=== PATIENT | female | born 1965 | race Caucasian/White ===

== ENCOUNTER → 2017-02-27 | Outpatient (CLI) | payer OTHER ==
--- NOTE | 2017-02-27 11:08 | REPMRS ---
Patient History The patient states she has not had a clinical breast exam in over a year. No known family history of cancer. Patient has lost 25 pounds since last mammogram. Digital Mammo Screening Bilat: February 27, 2017 - Exam #: [id number] Bilateral CC and MLO view(s) were taken. Technologist: Patsy Brady Technologist Prior study comparison: June 28, 2013, bilateral digital mammo screening bilat performed at [facility]. July 11, 2010, bilateral digital mammo screening bilat performed at [facility]. FINDINGS: There are scattered fibroglandular densities. There has been no change in the appearance of the mammogram from the prior studies. There is a mild amount of scattered fibroglandular density which is fairly symmetric. There is no interval development of dominant mass, architectural distortion, or clustered microcalcification suggestive of malignancy. ASSESSMENT: BI-RADS/ACR category 1 mammogram. Negative. Recommendation Routine screening mammogram in 1 year (for women over age 40). This mammogram was interpreted with the aid of an FDA-approved computer-aided dectection system. Electronically Signed By: John Doss MD 02/27/17 [id number]
== END ==
LOC: M RAD 10:41
PROVIDERS: ATTEND Family Medicine
DX: Z12.31 Encounter for screening mammogram for malignant neoplasm of breast (principal)

== ENCOUNTER → 2017-05-02 | Outpatient (CLI) | payer OTHER ==
--- NOTE | 2017-05-02 14:41 | REP ---
Clinical: Shortness of breath . Comparison: None . Technique: PA and lateral. Findings: The mediastinum and cardiac silhouette are normal. The lung neal are clear and without acute consolidation, effusion, or pneumothorax. The skeletal structures are intact and normal. Impression: 1. No acute cardiopulmonary process. Signed by Javy Cash MD 05/02/2017 09:55 A
== END ==
LOC: M RAD 09:28
PROVIDERS: ATTEND Physician Assistant Medical
DX: R06.02 Shortness of breath (principal)

== ENCOUNTER → 2017-10-23 | Day surgery (SDC) | payer OTHER ==
[~2017-10-23] MED LIST: PROPOFOL 200 MG/20 ML VIAL As Ordered
[2017-10-23] MEDS: NS 1,000 ML IV (10:48)
== END | disposition home or self-care (01) ==
LOC: M OPP 10:30
DX: Z12.11 Encounter for screening for malignant neoplasm of colon (principal); N95.9 Unspecified menopausal and perimenopausal disorder; Z91.89 Other specified personal risk factors, not elsewhere classified; Z87.19 Personal history of other diseases of the digestive system
CPT/HCPCS: 45378

== ENCOUNTER → 2019-02-11 | Outpatient (CLI) | payer OTHER ==
[~2019-02-11] MED LIST changes: +CALC600T60 PO; +MULT1TAB10 PO; +OMEP-221 PO; +PROBCAP14 PO; +PROBCAP4 PO; -PROPOFOL 200 MG/20 ML VIAL As Ordered; +[UNRECOGNIZED DRUG - OTHER] PO
--- NOTE | 2019-02-11 13:15 | ECGEPIP ---
[facility] Test Date: 2019-02-11 Pat Name: EDDIE CHANG Department: Room: - Gender: Female Multi Media Specialist: MARY : [id number] Requested By: Familia Dominguez Order Number: [id number] Reading MD: Afsaneh Duque Measurements Intervals [place] Rate: 55 P: -2 WA: 145 QRS: 35 QRSD: 75 T: 50 QT: 400 QTc: 383 Interpretive Statements SINUS BRADYCARDIA LOW VOLT LIMB LEADS UNUSUAL P AXIS MILD EARLY REPOLAR CHANGES NSST ABN NO PRIOR Electronically Signed on 02-11-2019 13:15:37 EDT by Afsaneh Duque
== END ==
LOC: M EKG 12:46
PROVIDERS: ATTEND Orthopaedic Surgery
DX: Z01.818 Encounter for other preprocedural examination (principal); R00.1 Bradycardia, unspecified

== ENCOUNTER → 2019-02-11 | Outpatient (CLI) | payer OTHER ==
--- NOTE | 2019-02-11 11:55 | REP ---
Right rib series five views: There is no right rib fracture or other rib abnormality. PA chest: There is no pneumothorax, hemothorax or pulmonary contusion. Lung neal are clear. Cardiac size is normal. The michelle, mediastinum, skeletal structures are unremarkable. There is no change from the comparison study dated 05/02/2017. Impression: Negative PA chest Electronically Signed by Mynor Solis MD 02/11/2019 11:47 A
== END ==
LOC: M LRY 10:08
PROVIDERS: ATTEND Family Medicine
DX: R07.81 Pleurodynia (principal); Z01.818 Encounter for other preprocedural examination; R00.1 Bradycardia, unspecified
CPT/HCPCS: 71101; 93005; G0463

== ENCOUNTER 2019-02-24 10:50 | Day surgery (SDC) | payer OTHER ==
[~2019-02-24] VITALS: Ht 167.6 cm; Wt 70.8 kg
[~2019-02-24 10:50] MED LIST changes: +LIDOCAINE 1% MDV 20ML VIAL SQ PRN; +LR 1,000 ML IV ONE
[2019-02-24] MEDS ORDERED: ROPIvacaine 0.5% 30 ML INJECTION (J2795 PER 1MG) ONE (10:51)
[2019-02-24] MEDS ORDERED: dexameTHASONE 10 MG/1 ML VIAL PRES.FREE (J1100) ONE (10:51)
[2019-02-24 11:43] LABS: URINE PREG TEST NEGATIVE (NEGATIVE)
[2019-02-24] MEDS ORDERED: SCOPOLAMINE 1MG TRANSDERMAL PATCH As Ordered ONE (13:05)
[2019-02-24] MEDS ORDERED: fentaNYL 100 MCG/2 ML INJECTION (J3010) As Ordered ONE ×2 (13:08→14:55)
[2019-02-24] MEDS ORDERED: MIDAZOLAM INJ 2 MG/2 ML VIAL (J2250) As Ordered ONE ×2 (13:08→14:55)
[2019-02-24] MEDS ORDERED: SCOPOLAMINE 1MG TRANSDERMAL PATCH TOP ONE (13:15)
[2019-02-24] MEDS ORDERED: EPINEPHrine 1MG/ML INJ 30ML MD-VIAL As Ordered ONE (13:35)
[2019-02-24] MEDS: MIDAZOLAM INJ 2 MG/2 ML VIAL (J2250) IV SCH ×2 (13:36→13:38)
[2019-02-24] MEDS ORDERED: fentaNYL 100 MCG/2 ML INJECTION (J3010) IV ONE (14:15)
[2019-02-24] MEDS ORDERED: dexameTHASONE 4 MG/ML 1ML VIAL (J1100) As Ordered ONE (14:38)
[2019-02-24] MEDS ORDERED: ROCURONIUM BROMIDE 50 MG/5 ML VIAL As Ordered ONE (14:55)
[2019-02-24] MEDS ORDERED: SUCCINYLCHOLINE 100 MG/5 ML SYRINGE (J0330) As Ordered ONE (14:55)
[2019-02-24] MEDS ORDERED: PROPOFOL 200 MG/20 ML VIAL As Ordered ONE (14:55)
[2019-02-24] MEDS ORDERED: LIDOCAINE 2% INJ 100 MG/5 ML SDV (FOR ANES.) As Ordered ONE (14:55)
[2019-02-24] MEDS ORDERED: PHENYLephrine HCL 500 MCG/5 ML (100MCG/ML) SYRINGE (J2370) As Ordered ONE (15:19)
[2019-02-24] MEDS ORDERED: ONDANSETRON 4MG/2ML VIAL (J2405) As Ordered ONE (15:34)
[2019-02-24] MEDS ORDERED: GLYCOPYRROLATE INJ 0.2 MG/ML 2 ML VIAL As Ordered ONE (15:35)
[2019-02-24] MEDS ORDERED: NEOSTIGMINE 10 MG/10 ML VIAL (J2710) As Ordered ONE (15:35)
[2019-02-24] MEDS ORDERED: LR 1,000 ML IV SCH ×2 (16:00)
[2019-02-24] MEDS ORDERED: PERCOCET 5MG/325MG TAB PO PRN ×2 (16:00)
[2019-02-24] MEDS ORDERED: fentaNYL 100 MCG/2 ML INJECTION (J3010) IV PRN (16:00)
[2019-02-24] MEDS ORDERED: ONDANSETRON 4MG/2ML VIAL (J2405) IV PRN (16:00)
[2019-02-24] MEDS ORDERED: MORPHINE 2 MG/ML 1ML SYRINGE (J2270) IV PRN (16:00)
[2019-02-24] MEDS ORDERED: METOCLOPRAMIDE INJ 10MG/2ML VIAL (J2765) As Ordered ONE (16:30)
[2019-02-24] MEDS ORDERED: METOCLOPRAMIDE INJ 10MG/2ML VIAL (J2765) IV PRN (16:45)
[2019-02-24 18:15] VITALS: BP 113/71
--- NOTE | 2019-02-25 14:05 | RO ---
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 POSTPROCEDURE DIAGNOSES: 1. 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 2. Articular side rotator cuff partial thickness tearing. PROCEDURE: 1. Left shoulder arthroscopic Bankart reconstruction. 2. Left shoulder arthroscopic debridement of articular-sided rotator cuff partial tearing. SURGEON: Dr. Familia Anguiano. GARBAGE COLLECTOR: ANESTHESIA: General endotracheal tube anesthesia with left nerve scalene nerve block. COMPLICATIONS: None. FINDINGS: She had a significant anterior labral periosteal sleeve avulsion ALPSA lesion of the anterior labrum of the shoulder with a large Hill-Sachs deformity consistent with an unstable left shoulder. The undersurface of the rotator cuff had significant fraying of the supraspinatus tendon insertion. Exam under anesthesia showed a worsened increased translation but it was not dislocated ball. But she had she had fairly lax anteroinferior left shoulder compared to the right. DESCRIPTION OF PROCEDURE: After the anesthetic had been successfully established, she was placed in a semi-beach chair position. The left shoulder area was carefully prepped and draped in the usual sterile fashion after appropriate time out. Routine diagnostic arthroscopy performed through a posterior portal. An anterior-superior working cannula and portal was established and we explored the joint with the findings as noted. After careful exploration of the joint, and understanding the pathology, I debrided the undersurface of the rotator cuff tendon tear with a 4.0 curved shaver. I then established an anterior superior cannula using a Switching Stick then the dilators and using a 7 mm x 7 cm cannula. Then I established the anteroinferior cannula by introducing a spinal needle to localize our direction of insertion just above the subscapularis tendon and then I used the Switching Stick followed by the dilators. I inserted an 8.25 x 9 cannula. I then introduced the silver subperiosteal elevator to debride and free-up the ALPSA lesion along the anterior rim of the glenoid all the way inferiorly. Once this had been nicely free, I used the shaver to debride this area to help freshen for healing as well trimmed up some of the frayed anteroinferior labral tearing with the shaver. Once that had been satisfied with this release of the labrum and immobilized sufficiently, I used a 22-degree curve to the left suture lasso from the inferior cannula and grabbed a good bite of the anteroinferior capsule and labrum and then applied that lasso out to the anterosuperior cannula with a grab claw past the loop of a fiber cinch through that and pulled it out through the anteroinferior cannula and grabbed the remaining limb out to the anteroinferior cannula passed it through the loop as a cinch stitch. We loaded this onto a 2.9 PushLock. Introduced the drill through the anteroinferior cannula. Drilled at the inferior aspect of the anterior glenoid, and then passed the 2.9 PushLock making sure kourtney was good tension. This provided a nice excellent bumper effect and brought the anteroinferior labrum up superiorly nicely tightening up the inferior capsule. The remaining tail of the suture was cut with a suture cutter. I then, in a similar fashion passed another loop of sutures through the labrum just above the previously placed anteroinferior anchor. Again, the suture lasso was passed out through the anterosuperior cannula followed by a loop of fiber chinch, passed back through the anteroinferior cannula. Then the tail was also passed up through the anteroinferior cannula, loop through itself as a cinch stitch, loaded on the 2.9 PushLock. The drill was introduced. The drill hole was made and then the 2.0 PushLock dumped appropriately into the hole with good tension on the suture. Then the tail was cut with a suture cutter. This provided nice stability of the shoulder. Her drive through sign that she had previously was now absent indicative that we tightened the shoulder nicely in the anteroinferior direction. No arthroscopic review of pathology was identified. We copiously irrigated out the shoulder joint and removed the arthroscopy instruments. Closed the arthroscopy portals with interrupted nylon sutures, covered by Adaptic, dry sterile bulky dressing. She was placed into a sling and then awakened from general endotracheal anesthesia after having tolerated the procedure well, transferred to the recovery room in stable condition. There were no intraoperative complications.
== END 2019-02-24 18:45 | disposition home or self-care (01) ==
LOC: M SDC 10:50
PROVIDERS: ATTEND Orthopaedic Surgery
DX: S46.012A Strain of muscle(s) and tendon(s) of the rotator cuff of left shoulder, initial encounter (principal); X58.XXXA Exposure to other specified factors, initial encounter; Y92.89 Other specified places as the place of occurrence of the external cause; Y99.9 Unspecified external cause status; Y93.9 Activity, unspecified; K21.9 Gastro-esophageal reflux disease without esophagitis; Z79.899 Other long term (current) drug therapy
CPT/HCPCS: 29806; 64415; 84703; C1713; J0330; J0690; J1100; J2250; J2370; J2405; J2710; J2765; J2795; J3010

== ENCOUNTER 2020-11-26 07:33 | Emergency (ER) | payer OTHER ==
[~2020-11-26] VITALS: Ht 170.2 cm; Wt 76.5 kg
[~2020-11-26 07:33] MED LIST changes: -LIDOCAINE 1% MDV 20ML VIAL SQ PRN; -LR 1,000 ML IV ONE
[2020-11-26] MEDS ORDERED: NS 1,000 ML IV ONE (08:10)
[2020-11-26 08:26] LABS: HEMATOCRIT 46.1 % (36.0-47.0); HEMOGLOBIN 15.4 g/dl (12.0-15.5); MEAN CORPUSCULAR HEMOGLOBIN 29.4 pg (27.0-33.0); MEAN CORPUSCULAR HGB CONC 33.4 g/dl (32.0-36.5); RED BLOOD COUNT 5.24 10^6/uL (4.00-5.40); WHITE BLOOD COUNT 5.4 10^3/uL (4.0-10.0)
[2020-11-26 08:27] LABS: BASO % 0.4 % (0.0-1.0); EOS # 0.2 10^3/uL (0.0-0.5); EOS % 3.9 % (0.0-3.0); LYMPH # 1.6 10^3/uL (1.5-5.0); LYMPH % 28.9 % (24.0-44.0); MONO # 0.6 10^3/uL (0.0-0.8); MONO % 11.6 % (2.0-8.0); NEUTROPHILS % 54.8 % (36.0-66.0); PLATELET COUNT, AUTOMATED 259 10^3/uL (150-450)
[2020-11-26 09:18] LABS: ALBUMIN 3.9 GM/DL (3.2-5.2); ALT/SGPT 26 U/L (12-78); BILIRUBIN,DIRECT 0.2 MG/DL (0.0-0.2); BILIRUBIN,TOTAL 0.7 MG/DL (0.2-1.0); CK-MB VALUE MASS < 1.0 NG/ML (<3.6); CPK CREATINE PHOSPHOKINASE 108 U/L (26-192); LIPASE 126 U/L (73-393); MB/CK RELATIVE INDEX 0.93 (< OR =4); TROPONIN I < 0.02 NG/ML (< 0.10)
--- NOTE | 2020-11-26 09:23 | REP ---
INDICATION: vag bleeding x4 days post menopausal. COMPARISON: None. TECHNIQUE: Transabdominal and transvaginal scanning were performed. FINDINGS: Uterine dimensions are normal at 5.9 x 3.5 x 4.5 cm. Endometrial echo is 0.19 cm thick and centrally placed. No free fluid is seen in the cul-de-sac. Visualized bladder atkins are smooth. There is a hyperechoic areas seen the midline of the lower uterus measuring 1.2 x 1.1 x 0.9 cm suggestive of a uterine fibroid. There is a tiny nabothian cyst. The right ovary has dimensions of 2.0 x 1.2 x 1.9 cm. It's Doppler flow is normal with a resistive index of 0.72. There is a 1.5 cm follicle cyst in the right ovary. The left ovary dimensions are normal as well at 1.2 x 0.9 x 0.9 cm. It's Doppler flow was normal with resistive index of 0.79. IMPRESSION: There is evidence of a small, 1.2 cm lower uterine segment fibroid. A 1.5 cm follicle cyst is seen in the right ovary. Otherwise normal.. <Electronically signed by John Doss > 11/26/20 [id number]
[2020-11-26] MEDS ORDERED: ISOVUE-370 76% 100ML VIAL As Ordered ONE (09:28)
--- NOTE | 2020-11-26 09:50 | REP ---
INDICATION: diffuse abd pain x8 days, upper abd TTP. COMPARISON: None. TECHNIQUE: Helical scanning was acquired and 4 mm axial images are re-formatted. Coronal and sagittal MPR images were generated and reviewed. The contrast enhancement dose is 100 mL of intravenous Isovue 370. FINDINGS: Digital preliminary resource specialist radiograph demonstrates an unremarkable bowel gas pattern. The lung bases are clear on axial CT images. There is minimal linear fibrosis in the lingula at the left base. No pleural effusion or upper abdominal ascites is seen. There is a cyst in the periportal region of the left lobe of the liver measuring 2.0 cm in greatest diameter. There is mild diffuse fatty infiltration of the liver. No other focal liver lesion is seen. No abnormality is visible in the gallbladder. Normal adrenal glands are observed bilaterally. The spleen is normal in size, 11.5 cm, and homogeneous density. There is moderate focal cortical atrophy/scarring the upper pole of the right kidney question old reflux nephropathy versus old infarct. This is a chronic finding. There is no evidence hydronephrosis or renal mass on either side. No intrarenal calculus is seen. There is a retroaortic left renal vein noted incidentally. No abnormality is visible in the pancreas. Normal caliber aorta is seen. A normal appendix is noted in the right lower quadrant posterior to the cecum. Small and large intestinal bowel loops are unremarkable in the abdomen and pelvis. No abdominal wall defect is seen. No uterine or ovarian abnormality is observed. Urinary bladder is intact. Bone window settings show no acute bony abnormality. There are degenerative disc changes at L5-S1 and at L2-3. IMPRESSION: Old cortical scarring upper pole right kidney. Small hepatic cyst. No acute abdominal or pelvic abnormality. Mild fatty infiltration of the liver. <Electronically signed by John Doss > 11/26/20 0995
[2020-11-26] MEDS ORDERED: ACETAMINOPHEN 500 MG TAB PO ONE (10:40)
[2020-11-26] MEDS ORDERED: ONDANSETRON 4MG/2ML VIAL IV ONE (10:40)
[2020-11-26 12:26] VITALS: BP 109/75
--- NOTE | 2020-11-27 16:49 | ECGEPIP ---
[facility] - ED Test Date: 2020-11-26 Pat Name: EDDIE CHANG Department: Room: - Gender: Female Sisal Picker: JANEE : 1965 Requested By: ROSALINDA Portillo PA-C Order Number: [id number] Reading MD: Shanika Carranza Measurements Intervals [place] Rate: 59 P: -1 VA: 140 QRS: 33 QRSD: 70 T: 41 QT: 412 QTc: 407 Interpretive Statements Sinus bradycardia similar 02/11/19 Electronically Signed on 11-27-2020 16:49:32 EDT by Shanika Carranza
== END 2020-11-26 12:32 | disposition home or self-care (01) ==
LOC: M ED 07:33
DX: R00.1 Bradycardia, unspecified (principal); D25.9 Leiomyoma of uterus, unspecified; N95.0 Postmenopausal bleeding; N83.01 Follicular cyst of right ovary; K76.0 Fatty (change of) liver, not elsewhere classified; N28.89 Other specified disorders of kidney and ureter; K76.89 Other specified diseases of liver; N39.41 Urge incontinence; R51.9 Headache, unspecified; G43.909 Migraine, unspecified, not intractable, without status migrainosus
CPT/HCPCS: 74177; 76830; 76856; 80047; 80076; 81001; 82550; 82553; 83690; 84484; 85025; 93005; 93976; 96361; 96374; 99284; J2405; Q9967

== ENCOUNTER → 2021-02-12 | Outpatient (REF) | payer OTHER ==
[2021-02-12 11:58] LABS: APPEARANCE, URINE CLOUDY (CLEAR); BACTERIA, URINE AUTO 2+ (NEGATIVE); BILIRUBIN, URINE AUTO NEGATIVE (NEGATIVE); BLOOD, URINE BLOOD 3+ (NEGATIVE); COLOR, URINE YELLOW (YELLOW); GLUCOSE, URINE (UA) AUTO NEGATIVE (NEGATIVE); KETONE, URINE AUTO NEGATIVE (NEGATIVE); LEUKOCYTE ESTERASE, URINE AUTO 3+ (NEGATIVE); MUCUS, URINE SMALL (NEGATIVE); NITRITE, URINE AUTO NEGATIVE (NEGATIVE); PROTEIN, URINE AUTO 2+ mg/dL (NEGATIVE); RBC, URINE AUTO 12 /HPF (0-3); SPECIFIC GRAVITY URINE AUTO 1.002 (1.002-1.035); SQUAMOUS EPITHELIAL CELL UR AU 1 /HPF (0-6); TRANSITIONAL EPITHELIAL AUTO 3 /HPF; UROBILINOGEN, URINE AUTO 0.2 mg/dL (0.0-2.0); WBC, URINE AUTO TNTC /HPF (0-3)
== END ==
LOC: M LAB REF 11:19
PROVIDERS: ATTEND Physician Assistant
DX: N39.0 Urinary tract infection, site not specified (principal)

== ENCOUNTER 2021-02-20 08:16 | Emergency (ER) | payer OTHER ==
[~2021-02-20] VITALS: Ht 167.6 cm; Wt 76.8 kg
[2021-02-20] MEDS ORDERED: predniSONE 20 MG TAB PO ONE (09:35)
[2021-02-20] MEDS ORDERED: PRED20TA PO (09:37)
[2021-02-20 09:45] VITALS: BP 132/78
== END 2021-02-20 10:00 | disposition home or self-care (01) ==
LOC: M ED 08:16
DX: T78.49XA Other allergy, initial encounter (principal); L50.0 Allergic urticaria; K21.9 Gastro-esophageal reflux disease without esophagitis; Z79.899 Other long term (current) drug therapy
CPT/HCPCS: 99283; J7512

== ENCOUNTER → 2021-05-02 | Outpatient (REF) ==
[~2021-05-02] MED LIST changes: +PRED20TA PO
== END ==
LOC: M EMP 11:12
PROVIDERS: ATTEND Family Medicine
DX: Z11.52 Encounter for screening for COVID-19 (principal)

== ENCOUNTER → 2022-02-20 | Outpatient (CLI) | payer OTHER ==
[~2022-02-20] MED LIST changes: -OMEP-221 PO; +OMEP40CA5 PO
== END ==
LOC: M WHC 08:07
PROVIDERS: ATTEND Family Medicine
DX: Z12.31 Encounter for screening mammogram for malignant neoplasm of breast (principal)

== ENCOUNTER → 2022-04-09 | Outpatient (REF) | LOC: M LABSMTC 09:40 | PROVIDERS: ATTEND Family Medicine | DX: Z20.822 Contact with and (suspected) exposure to COVID-19 (principal) ==

== ENCOUNTER → 2022-08-05 | Outpatient (REF) | payer OTHER ==
[2022-08-05 13:18] LABS: APPEARANCE, URINE CLOUDY (CLEAR); BACTERIA, URINE AUTO NEGATIVE (NEGATIVE); BILIRUBIN, URINE AUTO NEGATIVE (NEGATIVE); BLOOD, URINE BLOOD 1+ (NEGATIVE); COLOR, URINE YELLOW (YELLOW); GLUCOSE, URINE (UA) AUTO NEGATIVE (NEGATIVE); KETONE, URINE AUTO NEGATIVE (NEGATIVE); LEUKOCYTE ESTERASE, URINE AUTO 3+ (NEGATIVE); NITRITE, URINE AUTO NEGATIVE (NEGATIVE); PROTEIN, URINE AUTO 1+ mg/dL (NEGATIVE); RBC, URINE AUTO 28 /HPF (0-3); SPECIFIC GRAVITY URINE AUTO 1.011 (1.002-1.035); SQUAMOUS EPITHELIAL CELL UR AU 1 /HPF (0-6); UROBILINOGEN, URINE AUTO 0.2 mg/dL (0.0-2.0); WBC, URINE AUTO 2 /HPF (0-3)
== END ==
LOC: M LAB REF 12:00
PROVIDERS: ATTEND Physician Assistant Medical
DX: N39.0 Urinary tract infection, site not specified (principal)

== ENCOUNTER → 2023-02-12 | Outpatient (REF) | LOC: M EMP 08:58 | PROVIDERS: ATTEND Family Medicine | DX: Z11.52 Encounter for screening for COVID-19 (principal) ==

== ENCOUNTER → 2024-05-12 | Outpatient (CLI) | payer OTHER | LOC: M WHC 10:52 | PROVIDERS: ATTEND Nurse Practitioner Primary Care | DX: Z12.31 Encounter for screening mammogram for malignant neoplasm of breast (principal) ==

== ENCOUNTER 2024-07-06 14:41 | Emergency (ER) | payer OTHER ==
[~2024-07-06] VITALS: Ht 167.6 cm; Wt 79.6 kg
[2024-07-06 15:06] LABS: BASO % 0.6 % (0.0-1.0); EOS # 0.3 10^3/uL (0.0-0.5); EOS % 4.9 % (0.0-3.0); HEMATOCRIT 46.6 % (36.0-47.0); HEMOGLOBIN 15.8 g/dl (12.0-15.5); LYMPH # 2.5 10^3/uL (1.5-5.0); LYMPH % 37.7 % (24.0-44.0); MEAN CORPUSCULAR HEMOGLOBIN 30.5 pg (27.0-33.0); MEAN CORPUSCULAR HGB CONC 33.9 g/dl (32.0-36.5); MONO # 0.8 10^3/uL (0.0-0.8); MONO % 11.5 % (2.0-8.0); NEUTROPHILS # 2.9 10^3/uL (1.5-8.5); NEUTROPHILS % 45.1 % (36.0-66.0); PLATELET COUNT, AUTOMATED 275 10^3/uL (150-450); RED BLOOD COUNT 5.18 10^6/uL (4.00-5.40); WHITE BLOOD COUNT 6.5 10^3/uL (4.0-10.0)
[2024-07-06] MEDS: MAALOX 30 ML SUSP *UDC PO ONE (15:11)
[2024-07-06] MEDS: ASPIRIN 81MG CHEW TABLET PO ONE (15:13)
[2024-07-06] MEDS: LIDOCAINE VISCOUS 2% SOLN 15ML UDC PO ONE (15:13)
[2024-07-06] MEDS: PANTOPRAZOLE 40MG VIAL IV ONE (15:13)
[2024-07-06 15:18] LABS: INR 0.91; PARTIAL THROMBOPLASTIN TIME 27.4 SECONDS (24.8-34.2); PROTHROMBIN TIME 12.6 SECONDS (12.5-14.5)
[2024-07-06 15:33] LABS: ALBUMIN 3.8 G/DL (3.2-5.2); ALKALINE PHOSPHATASE 90 U/L (35-104); ALT/SGPT 28 U/L (7.0-40); AST/SGOT 23 U/L (<34); BILIRUBIN,DIRECT 0.1 MG/DL (<0.4); BILIRUBIN,TOTAL 0.5 MG/DL (0.3-1.2); BLOOD UREA NITROGEN 11 MG/DL (9-23); CARBON DIOXIDE LEVEL 30 MMOL/L (20-31); CHLORIDE LEVEL 104 MMOL/L (98-107); CK-MB VALUE MASS < 1.0 NG/ML (<3.6); CREATININE FOR GFR 0.88 MG/DL (0.55-1.30); GLOMERULAR FILTRATION RATE > 60.0 (>51); GLUCOSE, FASTING 96 MG/DL (60-100); POTASSIUM SERUM 4.6 MMOL/L (3.5-5.1); SODIUM LEVEL 141 MMOL/L (136-145); TOTAL PROTEIN 7.3 G/DL (5.7-8.2)
[2024-07-06 15:35] LABS: FREE T4 1.32 NG/DL (0.89-1.76); THYROID STIMULATING HORMONE 1.829 uIU/ML (0.55-4.78)
[2024-07-06 15:37] LABS: CPK CREATINE PHOSPHOKINASE 113 U/L (34-145); MB/CK RELATIVE INDEX 0.88 (< OR =4)
[2024-07-06] MEDS ORDERED: ISOVUE-370 76% 100ML VIAL As Ordered ONE (16:11)
[2024-07-06 16:34] LABS: CK-MB VALUE MASS < 1.0 NG/ML (<3.6)
[2024-07-06 16:41] LABS: CPK CREATINE PHOSPHOKINASE 100 U/L (34-145)
[2024-07-06 17:26] VITALS: BP 107/64; TEMP 97.6; O2SAT 95
== END 2024-07-06 17:30 | disposition home or self-care (01) ==
LOC: M ED 14:41
DX: R07.9 Chest pain, unspecified (principal); K21.9 Gastro-esophageal reflux disease without esophagitis; Z79.52 Long term (current) use of systemic steroids; Z79.899 Other long term (current) drug therapy
CPT/HCPCS: 71046; 71275; 80048; 80076; 82550; 82553; 84439; 84443; 84484; 85025; 85610; 85730; 93005; 93041; 94760; 96374; 99285; J2470; Q9967

== ENCOUNTER → 2025-02-09 | Outpatient (REF) | LOC: M LAB 14:47 | PROVIDERS: ATTEND Family Medicine | DX: Z01.89 Encounter for other specified special examinations (principal) ==